=== PATIENT | female | born 1960 | race Caucasian/White ===

== ENCOUNTER 2021-11-25 06:16 | Emergency (ER) | payer OTHER ==
[~2021-11-25] VITALS: Ht 162.6 cm; Wt 82.7 kg
[2021-11-25 06:20] VITALS: BP 148/83
[2021-11-25] MEDS ORDERED: LIDOCAINE 1% PF 30 ML VIAL. INJ ONE (07:00)
--- NOTE | 2021-11-25 07:08 | PHYS DOC ---
Past History Past Surgical History: , Tubal ligation Alcohol Use: None General Adult EDM: Chief Complaint: LACERATION/AVULSION HPI: HPI: Patient is a 61-year-old female who arrives by private vehicle to the emergency department after falling in her home. Patient reports she fell down an estimated 16 stairs. In doing so she sustained an injury to her forehead in the form of a laceration. Patient now reports to head, neck and shoulder pain. Patient states despite falling she did not lose consciousness. Patient further states there were no prodromal symptoms prior to falling and the patient does not have any neurological symptoms otherwise. Specifically she denies any history of chest pain, shortness of air or neurological disturbance otherwise. She is awake, alert and in pain. Review of Systems: Review of Systems: Constitutional: Denies fever or chills Eyes: Denies change in visual acuity HENT: Denies nasal congestion or sore throat Respiratory: Denies cough or shortness of breath Cardiovascular: Denies chest pain or edema GI: Denies abdominal pain, nausea, vomiting, bloody stools or diarrhea : Denies dysuria Musculoskeletal: Reports neck pain and bilateral shoulder pain. Integument: Reports laceration. Denies rash Neurologic: Denies headache, focal weakness or sensory changes Endocrine: Denies polyuria or polydipsia Lymphatic: Denies swollen glands Psychiatric: Denies depression or anxiety Family History: Family History: Noncontributory Current Medications: Current Meds: Current Medications Medications (Trade) Dose Ordered Sig/Juanita Start Time Stop Time Status Last Admin Dose Admin Lidocaine HCl (Lidocaine 1% Pf) 20 ml 1X ONCE 11/25/21 07:00 11/25/21 07:01 IA Allergies: Allergies: Allergies Coded Allergies Type Severity Reaction Last Updated Verified No Known Drug Allergies 11/25/21 No Physical Exam: PE: Constitutional: Uncomfortable appearing with acute signs of facial trauma. Well developed, well nourished, non-toxic appearance. [] HENT: Patient has a laceration of her forehead. Patient also has a contusion of the upper lip without siena laceration. Normocephalic, bilateral external ears normal, oropharynx moist, no oral exudates, nose normal. [] Eyes: PERRLA, EOMI, conjunctiva normal, no discharge. [] Neck: Tenderness palpation of the midline cervical spine. Supple, no stridor. [] Cardiovascular:Heart rate regular rhythm, no murmur [] Lungs & Thorax: Bilateral breath sounds clear to auscultation [] Abdomen: Bowel sounds normal, soft, no tenderness, no masses, no pulsatile masses. [] Skin: Warm, dry, no erythema, no rash. [] Back: No tenderness, no CVA tenderness. [] Extremities: Tenderness to palpation of the paraspinal muscles as well as the muscles of the upper thoracic spine. No cyanosis, no clubbing, ROM intact, no edema. [] Neurologic: Alert and oriented X 3, normal motor function, normal sensory function, no focal deficits noted. [] Psychologic: Affect normal, judgement normal, mood normal. [] Current Patient Data: Vital Signs: Vital Signs Date Time Temp Pulse Resp B/P (MAP) Pulse Ox O2 Delivery O2 Flow Rate FiO2 11/25/21 06:20 97.7 77 18 148/83 (104) 100 Room Air EKG: EKG: [] Radiology/Procedures: Radiology/Procedures: [][address] [address] IMAGING REPORT Signed PATIENT: MANOLO BORJA ACCOUNT: [id number] : 1960 LOCATION: ER AGE: 61 SEX: F EXAM STATUS: REG ER ORD. PHYSICIAN: LITTLE GARCIA DO REASON: trauma, FALL, GASH OVER LEFT EYE, NOSE SWOLLEN PROCEDURE: CT MAXILLOFACIAL WO CONTRAST STUDY: 1. CT maxillofacial without contrast 2. CT cervical spine without contrast INDICATION: Trauma. Fall. Face and neck pain. COMPARISON: None. TECHNIQUE: Axial CT imaging of the maxillofacial structures and cervical spine performed without the use of intravenous contrast. Sagittal and coronal reformats were obtained. One or more of the following individualized dose reduction techniques were utilized for this examination: 1. Automated exposure control 2. Adjustment of the mA and/or kV according to patient size 3. Use of iterative reconstruction technique. FINDINGS: CT MAXILLOFACIAL: Acute, comminuted fracture of the nasal bone complex with slight rightward deviation. No significant depression and small fracture fragments are displaced by less than 2 mm. Fractured perpendicular plate. The rest of the facial bones are intact. Bilateral temporomandibular joint arthrosis. No TMJ malalignment. Symmetric positioning of the globes. No retrobulbar hematoma. Contusion/laceration along the left paramidline lower frontal scalp with soft tissue injury extending along the nose. A small radiodense focus at the left paramidline frontal scalp on image 62 series 2 could represent some retained debris. Small volume hemorrhage within the sphenoid sinus. Normally aerated mastoid air cells and middle ears. No intracranial hemorrhage is appreciated at the base of the anterior cranial fossa. CT CERVICAL SPINE: No acute fracture or traumatic malalignment. Degenerative changes are mild. No severe osseous encroachment on the central canal or neural foramina. No soft tissue sequela of trauma seen throughout the neck. No apical pneumothorax. IMPRESSION: CT MAXILLOFACIAL: 1. Mildly comminuted but nondisplaced or depressed nasal bone complex fracture. Fractured perpendicular plate of the ethmoid. The rest of the facial bones are intact. 2. Soft tissue injury to the lower aspect of the frontal scalp extending downward along the nose. Small radiodense focus within the superficial soft tissues at the left paramidline frontal scalp (image 62 series 2) could be chronic or a small focus of retained debris. No evidence for injury to the globes or intraconal soft tissues. CT CERVICAL SPINE: 1. No acute fracture or traumatic malalignment. Electronically signed by: BEATA FERNANDES MD (11/25/2021 7:42 AM) [facility] DICTATED AND SIGNED BY: BEATA FERNANDES MD DATE: 11/25/21 0733 CC: LITTLE GARCIA DO; CRISTOFER MCCLOUD MD ~ [address] [address] IMAGING REPORT Signed PATIENT: MANOLO BORJA ACCOUNT: [id number] : 1960 LOCATION: ER AGE: 61 SEX: F EXAM STATUS: REG ER ORD. PHYSICIAN: LITTLE GARCIA DO REASON: fall/trauma PROCEDURE: KNEE LEFT 3V Left knee 3 views. HISTORY: Fall, trauma, 3 views were taken of the left knee. There is not evidence of a fracture or dislocation or osseous abnormality. There is no joint effusion. IMPRESSION: 1. No fracture noted in the left knee. Electronically signed by: Casimiro Shearer MD (11/25/2021 8:17 AM) [id number] DICTATED AND SIGNED BY: CASIMIRO SHEARER MD DATE: 11/25/21815 CC: LITTLE GARCIA DO; CRISTOFER MCCLOUD MD ~ [place] [address] IMAGING REPORT Signed PATIENT: MANOLO BORJA ACCOUNT: [id number] : 1960 LOCATION: ER AGE: 61 SEX: F EXAM STATUS: REG ER ORD. PHYSICIAN: LITTLE GARCIA DO REASON: trauma PROCEDURE: CT HEAD WO CONTRAST STUDY: CT head without contrast INDICATION: Trauma. COMPARISON: None. TECHNIQUE: Axial CT imaging through the head without the use of intravenous contrast. Sagittal and coronal reformats were obtained. One or more of the following individualized dose reduction techniques were utilized for this examination: 1. Automated exposure control 2. Adjustment of the mA and/or kV according to patient size 3. Use of iterative reconstruction technique. FINDINGS: No acute intracranial hemorrhage. Riley-white matter differentiation is maintaine d. No mass effect, midline shift or hydrocephalus. No depressed calvarial fracture. Frontal scalp/facial soft tissue injury dis cussed separately. IMPRESSION: No acute intracranial abnormality. Electronically signed by: BEATA FERNANDES MD (11/25/2021 8:23 AM) [facility] DICTATED AND SIGNED BY: BEATA FERNANDES MD DATE: 11/25/21811 CC: LITTLE GARCIA DO; CRISTOFER MCCLOUD MD ~ Heart Score: C/O Chest Pain: No Risk Factors: Risk Factors: DM, Current or recent (<one month) smoker, HTN, HLP, family history of CAD, obesity. Risk Scores: Score 0 - 3: 2.5% MACE over next 6 weeks - Discharge Home Score 4 - 6: 20.3% MACE over next 6 weeks - Admit for Clinical Observation Score 7 - 10: 72.7% MACE over next 6 weeks - Early Invasive Strategies Course & Med Decision Making: Course & Med Decision Making Pertinent Labs and Imaging studies reviewed. The patient arrived by private vehicle was immediately taken to room 8 where she was evaluated with respect to her injuries. CT imaging was obtained of the head, neck as well as maxillofacial structures. Additionally an x-ray of the left knee was obtained relative to the patient's fall. Imaging of the head, neck and knee were all normal without acute injury. Patient did have a comminuted slightly displaced nasal fracture. Following suture repair of the patient's lacerations, [facility] was contacted for ENT/facial trauma consultation. They have assured me they will contact the patient following discharge from the emergency department for follow-up. I have elected to place the patient on a course of antibiotics in addition to medicine for her pain relative to her findings as the patient does have blood in her sphenoid sinus. I have encouraged the patient to follow-up with the given information provided by [facility]. Should she not be able to obtain follow-up with them I advised that she return to the emergency department any change to her condition. The patient understands and has agreed to do so. She is nontoxic-appearing and stable for discharge Dragon Disclaimer: Dragon Disclaimer: This electronic medical record was generated, in whole or in part, using a voice recognition dictation system. Laceration Repair Lac Repair Indication: Facial trauma, nasal trauma [] Procedure: The patient was placed in the appropriate position and anesthesia around the [forehead and nose. The areas were then irrigated with normal saline. The lacerations were closed with 5-0 Ethilon. Bandages were placed over the injuries. Total repaired wound length: Forehead laceration measured 2.5 cm in length requiring 6 simple interrupted sutures. The nasal laceration measured 1 cm in length requiring 2 simple interrupted sutures. The patient tolerated the procedure very well. There were no complications Departure Departure: Impression: Primary Impression: Accidental fall Additional Impressions: Laceration of forehead Cervical strain, acute Contusion of left knee, initial encounter Disposition: 01 HOME / SELF CARE / HOMELESS Condition: STABLE Referrals: CRISTOFER MCCLOUD MD (PCP) Patient Instructions: Cervical Strain and Sprain with Rehab-Sports[facility], Fall Prevention and Home Safety, Laceration Care, Adult Additional Instructions: Please have sutures removed in 5 days by your primary care physician or here in the emergency department. Scripts Hydrocodone Bit/Acetaminophen (HYDROCODONE-APAP 5-325 ) 1 Each Tablet 1 TAB PO PRN Q6HRS PRN for PAIN for 3 Days, #12 TAB 0 Refills Prov: DANIELA LATIF [employer] 11/25/21 Amoxicillin/Potassium Clav (AUGMENTIN 875-125 TABLET) 1 Each Tablet 1 TAB PO BID for infection for 7 Days, #14 TAB 0 Refills Prov: LITTLE GARCIA DO 11/25/21 Cyclobenzaprine Hcl (CYCLOBENZAPRINE HCL) 5 Mg Tablet 1 TAB PO QHS for muscle stiffness, #15 TAB Prov: LITTLE GARCIA DO 11/25/21 LITTLE GARCIA DO November 25, 2021 07:08
[2021-11-25] MEDS ORDERED: DIPHTH,PERTUSS(ACELL),TET TOX 0.5 ML DISP.SYRIN. VAX IM ONE (07:15)
--- NOTE | 2021-11-25 07:45 | RAD ---
STUDY: 1. CT maxillofacial without contrast 2. CT cervical spine without contrast INDICATION: Trauma. Fall. Face and neck pain. COMPARISON: None. TECHNIQUE: Axial CT imaging of the maxillofacial structures and cervical spine performed without the use of intravenous contrast. Sagittal and coronal reformats were obtained. One or more of the following individualized dose reduction techniques were utilized for this examinat ion: 1. Automated exposure control 2. Adjustment of the mA and/or kV according to patient size 3. Use of iterative reconstruction technique. FINDINGS: CT MAXILLOFACIAL: Acute, comminuted fracture of the nasal bone complex with slight rightward deviation. No significant depression and small fracture fragments are displaced by less than 2 mm. Fractured perpendicular plat e. The rest of the facial bones are intact. Bilateral temporomandibular joint arthrosis. No TMJ malal ignment. Symmetric positioning of the globes. No retrobulbar hematoma. Contusion/laceration along the left paramidline lower frontal scalp with soft tissue injury extending along the nose. A small radiodense focus at the left paramidline frontal scalp on image 62 series 2 could represent some retained debris. Small volume hemorrhage within the sphenoid sinus. Normally aer ated mastoid air cells and middle ears. No intracranial hemorrhage is appreciated at the base of the anterior cranial fossa. CT CERVICAL SPINE: No acute fracture or traumatic malalignment. Degenerative changes are mild. No severe osseous encroachment on the central canal or neural foramina . No soft tissue sequela of trauma seen throughout the neck. No apical pneumothorax. IMPRESSION: CT MAXILLOFACIAL: 1. Mildly comminuted but nondisplaced or depressed nasal bone complex fracture. Fractured perpendicu lar plate of the ethmoid. The rest of the facial bones are intact. 2. Soft tissue injury to the lower aspect of the frontal scalp extending downward along the nose. Sm all radiodense focus within the superficial soft tissues at the left paramidline frontal scalp (image 62 series 2) could be chronic or a small focus of retained debris. No evidence for injury to the reva bes or intraconal soft tissues. CT CERVICAL SPINE: 1. No acute fracture or traumatic malalignment. Electronically signed by: BEATA FERNANDES MD (11/25/2021 7:42 AM) [facility]
--- NOTE | 2021-11-25 08:19 | RAD ---
Left knee 3 views. HISTORY: Fall, trauma, 3 views were taken of the left knee. There is not evidence of a fracture or dislocation or osseous ab normality. There is no joint effusion. IMPRESSION: 1. No fracture noted in the left knee. Electronically signed by: Casimiro Shearer MD (11/25/2021 8:17 AM) [id number]
--- NOTE | 2021-11-25 08:25 | RAD ---
STUDY: CT head without contrast INDICATION: Trauma. COMPARISON: None. TECHNIQUE: Axial CT imaging through the head without the use of intravenous contrast. Sagittal and co chuyita reformats were obtained. One or more of the following individualized dose reduction techniques were utilized for this examinat ion: 1. Automated exposure control 2. Adjustment of the mA and/or kV according to patient size 3. Use of iterative reconstruction technique. FINDINGS: No acute intracranial hemorrhage. Riley-white matter differentiation is maintained. No mass effect, mi dline shift or hydrocephalus. No depressed calvarial fracture. Frontal scalp/facial soft tissue injury discussed separately. IMPRESSION: No acute intracranial abnormality. Electronically signed by: BEATA FERNANDES MD (11/25/2021 8:23 AM) [facility]
[2021-11-25] MEDS ORDERED: HYDROcodone/APAP 7.5/325MG 1 TAB TABLET PO ONE (08:45)
[2021-11-25] MEDS ORDERED: CYCL5TAB PO (08:53)
[2021-11-25] MEDS ORDERED: HYDR-2759 PO ×2 (08:53→09:45)
[2021-11-25] MEDS ORDERED: HYDR-2155 PO ×2 (09:36→10:35)
[2021-11-25] MEDS ORDERED: AMOX1TAB61 PO (10:30)
== END 2021-11-25 11:00 | disposition home or self-care (01) ==
LOC: ER 06:16
DX: S01.81XA Laceration without foreign body of other part of head, initial encounter (principal); S16.1XXA Strain of muscle, fascia and tendon at neck level, initial encounter; S80.02XA Contusion of left knee, initial encounter; M54.6 Pain in thoracic spine; W10.8XXA Fall (on) (from) other stairs and steps, initial encounter; Y93.89 Activity, other specified; Y92.098 Other place in other non-institutional residence as the place of occurrence of the external cause; Y99.8 Other external cause status
CPT/HCPCS: 12013; 70450; 70486; 72125; 73562; 90471; 90715; 99284